=== PATIENT | female | born 1970 | race Caucasian/White ===

== ENCOUNTER 2021-04-04 12:35 | Outpatient (CLI) | payer BC, SELFPAY ==
[2021-04-04 11:53] VITALS: BMI 32.3
[2021-04-04 15:11] VITALS: BP 116/78; PULSE 72; RESP 18; TEMP 36.3; O2SAT 92
== END 2021-04-04 12:36 | disposition home or self-care (01) ==
LOC: OPS 12:36
PROVIDERS: PCP Family Medicine; Visit Provider Family Medicine
DX: U07.1 COVID-19 (principal)
CPT/HCPCS: 96365

== ENCOUNTER → 2022-03-21 09:21 | Outpatient (BNVA) | payer BC, SELFPAY | PROVIDERS: PCP Family Medicine; Visit Provider Family Medicine | DX: Z00.00 Encounter for general adult medical examination without abnormal findings (principal); R73.9 Hyperglycemia, unspecified; E03.9 Hypothyroidism, unspecified | CPT/HCPCS: 80053; 80061; 83036; 84443 ==

== ENCOUNTER 2023-06-18 11:30 | Outpatient (CLI) | payer BC, SELFPAY | END 2023-06-18 11:31 | disposition home or self-care (01) | LOC: SLEEP 06-19 09:26 | PROVIDERS: PCP Family Medicine; Visit Provider Family Medicine | DX: G47.33 Obstructive sleep apnea (adult) (pediatric) (principal); G47.10 Hypersomnia, unspecified; R09.02 Hypoxemia | CPT/HCPCS: G0399 ==

== ENCOUNTER → 2023-06-28 08:08 | Outpatient (BNVA) | payer BC, SELFPAY | PROVIDERS: PCP Family Medicine; Visit Provider Family Medicine | DX: R73.9 Hyperglycemia, unspecified (principal); E03.9 Hypothyroidism, unspecified; Z00.00 Encounter for general adult medical examination without abnormal findings | CPT/HCPCS: 80053; 80061; 83036; 84443 ==

== ENCOUNTER → 2024-08-26 08:33 | Outpatient (BNVA) | payer BC, SELFPAY | PROVIDERS: PCP Family Medicine; Visit Provider Family Medicine | DX: I10 Essential (primary) hypertension (principal); R73.9 Hyperglycemia, unspecified; E03.9 Hypothyroidism, unspecified; G47.33 Obstructive sleep apnea (adult) (pediatric) | CPT/HCPCS: 80053; 80061; 83036; 84443 ==